=== PATIENT | male | born 1995 | race Caucasian/White ===

== ENCOUNTER 2016-11-22 01:37 | Inpatient (IN) | payer OTHER ==
--- NOTE | ~2016-11-22 | CR72 ---
[facility] A Service of [facility] & [facility] RADIOLOGY TEXT RESULTS PATIENT: ASHLEY REYES LOCATION: [address] : [birth year] UNIT #: [id number] AGE: [address]: Loco Velasco MD SEX: M ORDER DR: [id number] [facility] [address] [facility]. [place], [place] [address] [id number] MR#: [id number] Acc #: [id number] NAME: ASHLEY REYES. : 1995 SEX: M STUDY DATE/TIME: 11/22/2016 2:04 UNIT: CEDOF ROOM: [facility] STUDY DESCRIPTION: CR Chest Single View Portable Attending Physician: Georgia Calle M.D. Ordering Physician: Dm Madden M.D. MEDICAL IMAGING REPORT This report is preliminary unless electronic signature is present EXAM Single view chest INDICATION Respiratory failure. Overdose. FINDINGS Single portable AP view of the chest without comparison. Endotracheal tube is in position approximately 6 cm above the nicolette. There is an enteric tube in the stomach. The lungs are clear. No pneumothorax. IMPRESSION 1. Endotracheal tube 6 cm above the nicolette. 2. Enteric tube is in the stomach. Dictated by... Amarjit Hill M.D. THIS IS AN ELECTRONICALLY VERIFIED REPORT Amarjit Hill M.D. at 11/23/2016 12:48 AM EDEN/kelton TD: 11/22/2016 03:32 JOB #: [id number] MEDICAL IMAGING REPORT Page 1 of 1 COPY
--- NOTE | ~2016-11-22 | EKG ---
PATIENT: ASHLEY REYES UNIT #: [id number] Ventricular Rate: 140 BPM Atrial Rate: 140 BPM P-R Interval: 130 ms QRS Duration: 102 ms Q-T Interval: 304 ms QTC Calculation(Bezet): 464 ms P Majestic: 45 degrees Calculated R Majestic: 67 degrees Calculated T Majestic: 11 degrees Diagnosis Line: Sinus tachycardia Diagnosis Line: Marked ST abnormality, possible inferior Diagnosis Line: subendocardial injury Diagnosis Line: Abnormal ECG Diagnosis Line: No previous ECGs available Diagnosis Line: Confirmed by MARCO LOPEZ MD ([id number]) on Diagnosis Line: 11/23/2016 7:58:14 AM INTERPRETING MD: JOHN PAIGE
--- NOTE | ~2016-11-22 | DS ---
Unit #: [id number] #: [id number] Patient: ASHLEY REYES [id number] [address] [place], [place] [address] [id number] I MR#: [id number] NAME: ASHLEY REYES. ROOM: 242 Age: 21 Sex: M Admission Date: 11/22/2016 : 1995 Discharge Date: Attending Physician: Loco Velasco M.D. Primary Care Physician: Primary Care Physician No DISCHARGE SUMMARY PRIMARY CARE PHYSICIAN None PRINCIPAL DIAGNOSES 1. Intentional polysubstance overdose including Flexeril, Tylenol and ibuprofen. 2. Suicide attempt. 3. Acute hypoxic respiratory failure, now resolved. 4. Hypokalemia. 5. Tobaccoism. 6. History of depression. 7. History of migraine headaches. CONSULTANTS Dr. Davy Agudelo M.D. - Pulmonology PROCEDURES 1. Chest x-ray on November 22, 2016, with no acute findings. 2. CT of the head without contrast on November 22, 2016, which was normal. CLINICAL HISTORY/HOSPITAL COURSE Mr. Reyes is a 21-year-old male with a history of depression, who presents to the emergency department after an intentional polypharmacy overdose. This included Flexeril, Tylenol #3 and Motrin. Please refer to H and P for further details. The patient was intubated for airway protection and subsequently admitted to the ICU. Dr. Agudelo was consulted and fortunately after about 24 hours, patient was successfully extubated. He is not having any shortness of breath now, no evidence of hypoxia and is eating well. Upon presentation, the patient was found to have an elevated Tylenol level of 92, but follow up Tylenol levels after treatment with charcoal and IV fluids decreased and there was no need for any further treatment. Therefore, the patient will be evaluated today by [facility] and likely transferred there if deemed appropriate. DISCHARGE CONDITION Stable. DISCHARGE STATUS Discharge to Our . Unit #: [id number] #: [id number] Patient: ASHLEY REYES DISCHARGE MEDICATIONS None. DISCHARGE INSTRUCTIONS Regular diet. Refrain from any further tobacco use. FOLLOWUP Per Our . Dictated by... Bettie Mace M.D. KEH/jyoti TD: 11/24/2016 11:02 JOB #: [id number] DISCHARGE SUMMARY Page 1 of 1 X Bettie Mace MD X DISCHARGE SUMMARY
--- NOTE | ~2016-11-22 | CT71 ---
[facility] A Service [facility] RADIOLOGY TEXT RESULTS PATIENT: ASHLEY REYES LOCATION: [facility] : [birth year] UNIT #: [id number] AGE: [address]: Dm Madden MD SEX: M ORDER DR: [id number] [place] [id number] [facility] [place] [facility]. [place], [place] [address] [id number] MR#: [id number] Acc #: [id number] NAME: ASHLEY REYES. : 1995 SEX: M STUDY DATE/TIME: 11/22/2016 4:01 UNIT: [facility] ROOM: STUDY DESCRIPTION: CT Head Wo Contrast Attending Physician: Dm Madden M.D. Ordering Physician: Dm Madden M.D. Primary Care Physician: Primary Care Physician No MEDICAL IMAGING REPORT This report is preliminary unless electronic signature is present EXAM CT head INDICATION Overdose. Unresponsive. Altered mental status. TECHNIQUE CT head without contrast. This CT exam was performed with one or more of the following radiation dose reduction techniques: automatic exposure control, adjustment of mA and/or kV according to patient size, and iterative reconstruction. COMPARISON None available. FINDINGS Axial noncontrast images were obtained from the skull base to the vertex. Ventricular size and configuration are normal. There is no evidence of acute infarct or hemorrhage. There are no extra-axial fluid collections. No mass lesion or mass effect is seen. There are no skull fractures. IMPRESSION Normal noncontrast head CT. Dictated by... Amarjit Hill M.D. THIS IS AN ELECTRONICALLY VERIFIED REPORT Aamrjit Hill M.D. at 11/22/2016 5:17 AM RPC/erikad [facility] A Service [facility] RADIOLOGY TEXT RESULTS PATIENT: ASHLEY REYES LOCATION: [facility] : [birth year] UNIT #: [id number] AGE: [address]: Dm Madden MD SEX: M ORDER DR: TD: 11/22/2016 04:50 JOB #: [id number] MEDICAL IMAGING REPORT Page 1 of 1 COPY
--- NOTE | ~2016-11-22 | EKG ---
PATIENT: ASHLEY REYES UNIT #: [id number] Ventricular Rate: 104 BPM Atrial Rate: 104 BPM P-R Interval: 176 ms QRS Duration: 100 ms Q-T Interval: 364 ms QTC Calculation(Bezet): 478 ms P Round Top: 83 degrees Calculated R Round Top: 79 degrees Calculated T Round Top: 2 degrees Diagnosis Line: Sinus tachycardia Diagnosis Line: Nonspecific ST and T wave abnormality Diagnosis Line: Abnormal ECG Diagnosis Line: When compared with ECG of 22-NOV-2016 01:48, Diagnosis Line: (unconfirmed) Diagnosis Line: T wave inversion no longer evident in Inferior Diagnosis Line: leads Diagnosis Line: Confirmed by MARCO LOPEZ MD ([id number]) on Diagnosis Line: 11/23/2016 7:59:42 AM INTERPRETING MD: JOHN PAIGE
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
[~2016-11-22 01:37] MED LIST: AMOXIL500 M1 PO; IBUPROFEN800 MG PO; KEFLEX PO; MULTIVITAMIN W-1 TAB PO; POLYSACC IRON150 MG PO; PROTEIN SUPPLEMENT; VICODIN 5/1 TAB 5/50 PO; WALGREEN'S PHARMACY
[2016-11-22 02:41] LABS: ARTERIAL BLD GAS O2 SATURATION 97.2 % (90.0-100.0); ARTERIAL BLOOD GAS CARBOXY HB 1.7 %sat (0.0-9.0); ARTERIAL BLOOD GAS HCO3 26.6 mmol/L; ARTERIAL BLOOD GAS MET HB 1.2 %sat (0.0-2.0); ARTERIAL BLOOD GAS PCO2 39.1 mmHg (35.0-45.0); ARTERIAL BLOOD GAS pH 7.441 (7.350-7.450)
[2016-11-22 02:42] LABS: ARTERIAL BLOOD GAS ART SITE LEFT BRACHIAL; ARTERIAL BLOOD GAS DELIVERY VENT; ARTERIAL BLOOD GAS VENT MODE AC; ARTERIAL DRAW? YES
[2016-11-22 03:01] LABS: BASOPHIL% 0.5 % (0-2.5); EOSINOPHIL# 0.1 X10e3 (0-0.7); EOSINOPHIL% 1.1 % (0.0-7.0); HEMATOCRIT 42.6 % (38.0-50.0); HEMOGLOBIN 14.5 gm/dL (13.0-16.0); LYMPHOCYTE# 1.5 X10e3 (1.0-3.5); LYMPHOCYTE% 31.2 % (17.0-45.0); MEAN CELL VOLUME 96.4 FL (83-96); MEAN CORPUSCULAR HEMOGLOBIN 32.9 PG (28-34); MEAN CORPUSCULAR HGB CONC 34.1 g/dL (30-36); MEAN PLATELET VOLUME 9.4 FL (6.5-11.5); MONOCYTE# 0.4 X10e3 (0-1.0); MONOCYTE% 7.8 % (3.0-12.0); NEUTROPHIL# 2.8 X10e3 (1.5-7.1); NEUTROPHIL% 59.4 % (40-75); PLATELET COUNT 127 X10e3 (140-420); RED BLOOD COUNT 4.42 X10e (3.90-5.60); RED CELL DISTRIBUTION WIDTH 11.7 % (11.0-15.5); WHITE BLOOD COUNT 4.8 X10e3 (4.0-10.5)
[2016-11-22 03:01] LABS: POC - CKMB <1.0 ng/mL (0.0-7.9); POC - TROPONIN <0.05 ng/mL (<=0.05)
[2016-11-22 03:02] LABS: DIFF IND NO
[2016-11-22 03:08] LABS: URINE APPEARANCE CLEAR; URINE BILIRUBIN NEG (NEG); URINE BLOOD 1+ (NEG); URINE COLOR YELLOW; URINE GLUCOSE NEG (NEG); URINE KETONE NEG (NEG); URINE LEUKOCYTE ESTERASE TRACE (NEG); URINE NITRATE NEG (NEG); URINE PH 6.5 (5-8); URINE PROTEIN NEG (NEG); URINE SPECIFIC GRAVITY 1.009 (1.003-1.035); URINE UROBILINOGEN 0.2 MG/DL (NEG)
[2016-11-22 03:11] LABS: URINE BACTERIA AUWI NEG (NEGATIVE); URINE SQUAMOUS EPITHELIAL CELL OCC /[HPF]
[2016-11-22 03:13] LABS: CULTURE INDICATED? NO
[2016-11-22 03:14] LABS: URINE SOURCE CLEAN CATCH
[2016-11-22 03:15] LABS: ACETAMINOPHEN 92 ug/mL; ALBUMIN SERUM 4.4 g/dL (3.5-5.0); ALKALINE PHOSPHATASE 56 U/L (32-92); ALT (SGPT) 15 U/L (10-40); AMYLASE 14 U/L (0-46); AST (SGOT) 18 U/L (10-42); BILIRUBIN,TOTAL 1.3 mg/dL (0.2-2.0); BLOOD UREA NITROGEN 9 mg/dL (9-23); CALCIUM SERUM 8.6 mg/dL (8.4-10.2); CARBON DIOXIDE 24 mmol/L (22-31); CHLORIDE 106 mmol/L (100-111); CK TOTAL 40 IU/L (36-174); CREATININE SERUM 0.9 mg/dL (0.6-1.4); GLOM FILT RATE Estimated 120.8 mL/min (>60); GLUCOSE FASTING 169 mg/dL (70-110); LIPASE 16 U/L (22-51); PROTEIN TOTAL SERUM 6.9 g/dL (6.0-8.3); SALICYLATE <4.0 mg/dL; SODIUM 137 mmol/L (135-145)
[2016-11-22 03:16] LABS: ALCOHOL BLOOD <5 mg/dL (0); POTASSIUM 2.6 mmol/L (3.5-5.1)
[2016-11-22 03:16] LABS: AMPHETAMINE NEG (NEG); BARBITURATES NEG (NEG); BENZODIAZEPINES NEG (NEG); COCAINE NEG (NEG); MARIJUANA NEG (NEG); OPIATES POS (NEG); TRICYCLIC ANTIDEPRESSANTS POS (NEG); U METHADONE NEG (NEG)
[2016-11-22 03:19] LABS: INR 1.2; PARTIAL THROMBOPLASTIN TIME 27.8 SECONDS (23.5-31.3); PROTHROMBIN TIME (PATIENT) 12.8 SECONDS (10.0-11.7)
[2016-11-22 04:47] LABS: ARTERIAL BLD GAS O2 SATURATION 97.4 % (90.0-100.0); ARTERIAL BLOOD GAS CARBOXY HB 1.2 %sat (0.0-9.0); ARTERIAL BLOOD GAS MET HB 1.4 %sat (0.0-2.0); ARTERIAL BLOOD GAS PCO2 36.7 mmHg (35.0-45.0); ARTERIAL BLOOD GAS pH 7.442 (7.350-7.450)
[2016-11-22 04:48] LABS: ARTERIAL BLOOD GAS ART SITE LEFT BRACHIAL; ARTERIAL BLOOD GAS DELIVERY VENT; ARTERIAL BLOOD GAS VENT MODE AC; ARTERIAL DRAW? YES
[2016-11-22 08:33] LABS: ARTERIAL BLD GAS O2 SATURATION 99.1 % (90.0-100.0); ARTERIAL BLOOD GAS ALLEN TEST NORMAL; ARTERIAL BLOOD GAS CARBOXY HB 0.6 %sat (0.0-9.0); ARTERIAL BLOOD GAS HCO3 29.9 mmol/L; ARTERIAL BLOOD GAS MET HB 0.6 %sat (0.0-2.0); ARTERIAL BLOOD GAS PCO2 40.7 mmHg (35.0-45.0); ARTERIAL BLOOD GAS pH 7.475 (7.350-7.450); ARTERIAL DRAW? YES
[2016-11-22 08:34] LABS: ARTERIAL BLOOD GAS ART SITE RIGHT RADIAL; ARTERIAL BLOOD GAS DELIVERY VENT; ARTERIAL BLOOD GAS VENT MODE AC
[2016-11-22] MEDS ORDERED: FLEXERIL10 MG PO (08:34)
[2016-11-22] MEDS ORDERED: TYLENOL WITH C1 EACH PO (08:38)
[2016-11-22 10:55] LABS: CALCIUM SERUM 8.1 mg/dL (8.4-10.2); CREATININE SERUM 0.7 mg/dL (0.6-1.4); MAGNESIUM 1.6 mg/dL (1.6-3.0)
[2016-11-22 10:57] LABS: POTASSIUM 2.5 mmol/L (3.5-5.1)
[2016-11-22 11:28] LABS: BASOPHIL% 0.5 % (0-2.5); EOSINOPHIL# 0.1 X10e3 (0-0.7); EOSINOPHIL% 1.7 % (0.0-7.0); HEMATOCRIT 39.2 % (38.0-50.0); HEMOGLOBIN 13.5 gm/dL (13.0-16.0); LYMPHOCYTE# 2.1 X10e3 (1.0-3.5); LYMPHOCYTE% 34.2 % (17.0-45.0); MEAN CELL VOLUME 95.7 FL (83-96); MEAN CORPUSCULAR HGB CONC 34.5 g/dL (30-36); MEAN PLATELET VOLUME 9.1 FL (6.5-11.5); MONOCYTE# 0.6 X10e3 (0-1.0); MONOCYTE% 9.3 % (3.0-12.0); NEUTROPHIL# 3.3 X10e3 (1.5-7.1); NEUTROPHIL% 54.3 % (40-75); PLATELET COUNT 123 X10e3 (140-420); RED CELL DISTRIBUTION WIDTH 11.8 % (11.0-15.5)
[2016-11-22 11:30] LABS: DIFF IND NO
[2016-11-22 16:34] LABS: MAGNESIUM 2.1 mg/dL (1.6-3.0); POTASSIUM 3.6 mmol/L (3.5-5.1)
[2016-11-22 16:56] LABS: BILIRUBIN, DIRECT 0.2 mg/dL (0.0-0.2); BILIRUBIN,INDIRECT 0.8 mg/dL (0.0-0.9); PROTEIN TOTAL SERUM 6.2 g/dL (6.0-8.3)
[2016-11-22 21:37] LABS: CALCIUM SERUM 8.5 mg/dL (8.4-10.2); CARBON DIOXIDE 29 mmol/L (22-31); CHLORIDE 111 mmol/L (100-111); CREATININE SERUM 0.7 mg/dL (0.6-1.4); GLUCOSE FASTING 98 mg/dL (70-110); POTASSIUM 4.1 mmol/L (3.5-5.1); SODIUM 143 mmol/L (135-145)
[2016-11-22 21:38] LABS: BLOOD UREA NITROGEN <5 mg/dL (9-23); BUN/CREATININE RATIO 7.14
[2016-11-23 06:07] LABS: ALBUMIN SERUM 3.5 g/dL (3.5-5.0); ALKALINE PHOSPHATASE 50 U/L (32-92); ALT (SGPT) 13 U/L (10-40); AST (SGOT) 13 U/L (10-42); CALCIUM SERUM 8.5 mg/dL (8.4-10.2); CARBON DIOXIDE 29 mmol/L (22-31); CHLORIDE 108 mmol/L (100-111); CREATININE SERUM 0.7 mg/dL (0.6-1.4); GLUCOSE FASTING 93 mg/dL (70-110); MAGNESIUM 1.6 mg/dL (1.6-3.0); POTASSIUM 3.8 mmol/L (3.5-5.1); PROTEIN TOTAL SERUM 5.5 g/dL (6.0-8.3); SODIUM 140 mmol/L (135-145)
[2016-11-23 06:08] LABS: BLOOD UREA NITROGEN <5 mg/dL (9-23); BUN/CREATININE RATIO 7.14
[2016-11-23 09:42] LABS: ARTERIAL BLOOD GAS CARBOXY HB 0.4 %sat (0.0-9.0); ARTERIAL BLOOD GAS HCO3 28.6 mmol/L; ARTERIAL BLOOD GAS MET HB 0.6 %sat (0.0-2.0); ARTERIAL BLOOD GAS PCO2 36.6 mmHg (35.0-45.0); ARTERIAL BLOOD GAS pH 7.502 (7.350-7.450)
[2016-11-23 09:44] LABS: ARTERIAL BLD GAS O2 SATURATION >99.1 % (90.0-100.0); ARTERIAL BLOOD GAS ALLEN TEST NORMAL; ARTERIAL BLOOD GAS ART SITE RIGHT RADIAL; ARTERIAL BLOOD GAS DELIVERY VENT; ARTERIAL BLOOD GAS VENT MODE SIMV; ARTERIAL DRAW? YES
[2016-11-23 14:32] LABS: BLOOD UREA NITROGEN <5 mg/dL (9-23); BUN/CREATININE RATIO 6.25; CALCIUM SERUM 8.7 mg/dL (8.4-10.2); CARBON DIOXIDE 28 mmol/L (22-31); CHLORIDE 105 mmol/L (100-111); CREATININE SERUM 0.8 mg/dL (0.6-1.4); GLOM FILT RATE Estimated 126.9 mL/min (>60); GLUCOSE FASTING 100 mg/dL (70-110); POTASSIUM 3.5 mmol/L (3.5-5.1); SODIUM 138 mmol/L (135-145)
[2016-11-23 22:08] LABS: BUN/CREATININE RATIO 5.55; CALCIUM SERUM 9.1 mg/dL (8.4-10.2); CREATININE SERUM 0.9 mg/dL (0.6-1.4); GLOM FILT RATE Estimated 120.8 mL/min (>60); POTASSIUM 3.5 mmol/L (3.5-5.1)
[2016-11-24 05:53] LABS: BASOPHIL% 0.2 % (0-2.5); EOSINOPHIL# 0.2 X10e3 (0-0.7); EOSINOPHIL% 2.6 % (0.0-7.0); HEMATOCRIT 40.6 % (38.0-50.0); HEMOGLOBIN 13.8 gm/dL (13.0-16.0); LYMPHOCYTE# 1.5 X10e3 (1.0-3.5); MEAN CELL VOLUME 96.6 FL (83-96); MEAN CORPUSCULAR HEMOGLOBIN 32.8 PG (28-34); MEAN PLATELET VOLUME 8.9 FL (6.5-11.5); MONOCYTE# 0.6 X10e3 (0-1.0); MONOCYTE% 7.7 % (3.0-12.0); NEUTROPHIL# 4.9 X10e3 (1.5-7.1); NEUTROPHIL% 68.5 % (40-75); PLATELET COUNT 127 X10e3 (140-420); RED CELL DISTRIBUTION WIDTH 11.7 % (11.0-15.5); WHITE BLOOD COUNT 7.2 X10e3 (4.0-10.5)
[2016-11-24 06:03] LABS: DIFF IND NO
[2016-11-24 06:30] LABS: CALCIUM SERUM 8.9 mg/dL (8.4-10.2); CREATININE SERUM 0.6 mg/dL (0.6-1.4); GLOM FILT RATE Estimated 142.8 mL/min (>60); POTASSIUM 4.1 mmol/L (3.5-5.1)
== END 2016-11-25 00:54 | DRG 917 ==
LOC: CED 01:37 → CEDOF 05:30 → CED 05:32 → CEDOF 05:32 → CICCU3 05:32 → CEDOF 07:36 → CICCU3 07:36 → C2A 11-23 18:05
PROVIDERS: Emergency Medicine; Internal Medicine; Internal Medicine Pulmonary Disease
PROC: 5A1945Z Respiratory Ventilation, 24-96 Consecutive Hours (ICD-10-PCS; principal; 2016-11-22)
PROC: 0BH17EZ Insertion of Endotracheal Airway into Trachea, Via Natural or Artificial Opening (ICD-10-PCS; 2016-11-22)
DX: T39.1X2A Poisoning by 4-Aminophenol derivatives, intentional self-harm, initial encounter (principal); J96.01 Acute respiratory failure with hypoxia; T48.1X2A Poisoning by skeletal muscle relaxants [neuromuscular blocking agents], intentional self-harm, initial encounter; T39.312A Poisoning by propionic acid derivatives, intentional self-harm, initial encounter; Y92.009 Unspecified place in unspecified non-institutional (private) residence as the place of occurrence of the external cause; E87.6 Hypokalemia; F32.9 Major depressive disorder, single episode, unspecified; R00.0 Tachycardia, unspecified; F17.200 Nicotine dependence, unspecified, uncomplicated; Z91.5 Personal history of self-harm
CPT/HCPCS: 31500; 36600; 51702; 70450; 71010; 80048; 80053; 80076; 80307; 81003; 82150; 82550; 82553; 82803; 82947; 83690; 83735; 84132; 84484; 85025; 85610; 85730; 93005; 94002; 94760; 94761; 96361; 96374; 99291; G0480; J0330; J3475; J3480; J7060

== ENCOUNTER 2016-11-24 10:00 | Inpatient (IN) | payer OTHER ==
--- NOTE | ~2016-11-24 | PA ---
Unit #: [id number] #: [id number] Patient: ASHLEY REYES [id number] [facility] [address] [place] [address] [id number] MR#: [id number] NAME: ASHLEY REYES. ROOM: P173 Age: 21 Sex: M Admission Date: 11/25/2016 : 1995 Date of Assessment: 11/25/2016 Attending Physician: Nicole Wilkerson M.D. Admitting Physician: Nicole Wilkerson M.D. Primary Care Physician: Generic Doctor Not In System PSYCHIATRIC ASSESSMENT DATE OF SERVICE 11/25/2016. IDENTIFYING DATA Mr. Reyes is a 21-year-old single white male, who is a resident of [place], [place], and was transferred to from [facility] Emergency Room. CHIEF COMPLAINT "I was upset and I got sad and I overdosed." HISTORY OF PRESENT ILLNESS Mr. Reyes is a 21-year-old white male with history of mood disorder, who was taken to the emergency room after he overdosed in a suicide attempt and reports that he took Flexeril and Tylenol No.3 and that he was arguing with his girlfriend and was not talking to any of his friends and reports that he has attempted in the past by overdosing 3 years ago and does report increasing depression, anxiety, irritability, feelings of hopelessness and helplessness, and suicidal ideation, but then later denied having any suicidal ideation. However, recommendation for inpatient level of care was made and the patient was transferred to us. SUBSTANCE ABUSE HISTORY The patient reports history of alcohol and cannabis abuse, and reports that he has been smoking 2 joints a day everyday. PAST PSYCHIATRIC HISTORY The patient has had a history of inpatient psychiatric treatment at [facility] in the past. Review of the medical records indicate that currently he is not active in any treatment program, is not seeing a psychiatrist, and is not taking any psychotropic medications. PAST MEDICAL HISTORY No acute or chronic medical illnesses. ALLERGIES No known medication allergies. CURRENT MEDICATIONS None. PERSONAL AND SOCIAL HISTORY A 21-year-old white male, who reports that he is single and unemployed and Unit #: [id number] #: [id number] Patient: ASHLEY REYES lives at home with his mother and has fairly decent social support system. MENTAL STATUS EXAMINATION Young white male, who was casually dressed with a fair personal hygiene, appears to be in no acute distress or discomfort. He was awake and alert on interaction with intact orientation to time, place, and person. His mood was anxious and depressed with a congruent affect. His speech was slow and restricted in content. His thought processes were disorganized with some looseness of associations and flight of ideas. His insight and judgment remain significantly impaired. DIAGNOSTIC IMPRESSION Psychiatric: Major depressive disorder, recurrent, moderate, without psychotic features and cannabis dependence, moderate. Medical: None. Stressors: Moderate psychosocial stressors. TREATMENT PLAN 1. The patient has presented with a history of mood disorder and substance abuse and has been decompensating and will need inpatient hospitalization for safety and stabilization. We will start him back on his home medications. We will adjust the medications and monitor response. 2. Supportive therapy was provided to the patient. 3. Safe, structured, and nourishing environment will be provided. ESTIMATED LENGTH OF STAY 5 to 7 days. ABILITY TO HELP SELF Limited. WILLINGNESS TO HELP SELF The patient appears to be willing to help self. STRENGTHS 1. Communicative. 2. Cooperative. PROBLEMS 1. Chronic dysphoric symptoms. 2. Poor social support system. DISCHARGE CRITERIA This will be contingent upon the patient's ability to show resolution of his depression and anxiety and his ability to stay safe to himself, particularly after discharge from the hospital. Dictated by... Nicole Wilkerson M.D. KEMAR/rush TD: 11/25/2016 13:01 JOB #: [id number] Unit #: [id number] #: [id number] Patient: ASHLEY REYES PSYCHIATRIC ASSESSMENT Page 1 of 1 X Nicole Wilkerson MD PSYCHIATRIC ASSESSMENT
--- NOTE | ~2016-11-24 | PN ---
Unit #: [id number] #: [id number] Patient: ASHLEY REYES [id number] [facility] [address] [place] [address] [id number] I MR#: [id number] NAME: ASHLEY REYES. ROOM: P173 Age: 21 Sex: M Admission Date: 11/25/2016 : 1995 Attending Physician: Nicole Wilkerson M.D. Admitting Physician: Nicole Wilkerson M.D. Primary Care Physician: Generic Doctor Not In System [facility] PROGRESS NOTES DATE 11/26/2016 DISCUSSION Mr. Reyes is a 21-year-old, white male who was seen today and chart was reviewed and case was discussed with the staff. He has been anxious, withdrawn and rather seclusive to himself. Meanwhile, he has been cooperative with the treatment recommendations. He reports feeling somewhat better than yesterday. MENTAL STATUS EXAM Young white male who was casually dressed with marginal personal hygiene, appears to be in no acute distress or discomfort. He was awake and alert with impaired attention and concentration. His mood was anxious with congruent affect. His speech was slow and restricted in content. His thought process was disorganized with some looseness of associations. He denies any suicidal or homicidal ideation. his insight and judgement remains significantly impaired. TREATMENT PLAN 1. We will continue him on his current medications and treatment protocol. We will monitor his response to the medications and make further adjustments as needed. 2. We will continue to follow up. Dictated by... Catherine Lewis/callum TD: 11/27/2016 03:42 JOB #: [id number] Unit #: [id number] #: [id number] Patient: ASHLEY REYES [facility] PROGRESS NOTES Page 1 of 1 X Nicole Wilkerson MD PROGRESS NOTE
--- NOTE | ~2016-11-24 | DS ---
Unit #: [id number] #: [id number] Patient: [facility] [id number] [facility] [address] [place] [address] [id number] MR#: [id number] NAME: ASHLEY REYES. ROOM: P173 Age: 21 Sex: M Admission Date: 11/25/2016 : 1995 Discharge Date: 11/28/2016 Attending Physician: Nicole Wilkerson M.D. Primary Care Physician: Generic Doctor Not In System DISCHARGE SUMMARY IDENTIFYING DATA Mr. Reyes is a 21-year-old single white male who is a resident of [place], [place] and was transferred to us from [facility]. DISCHARGE DIAGNOSES Psychiatric: Major depressive disorder, recurrent, moderate, without psychotic features; cannabis abuse, moderate. Medical: None. Stressors: Mild psychosocial stressors. HISTORY OF PRESENT ILLNESS Please see initial psychiatric evaluation for details. PAST PSYCHIATRIC HISTORY Please see initial psychiatric evaluation for details. PAST MEDICAL HISTORY Please see initial psychiatric evaluation for details. HOSPITAL COURSE The patient was [facility] and was oriented to the hospital environment. Routine p.r.n. medications were initiated, and he was started back on his home medications and Celexa was initiated as an antidepressant and he was closely monitored. He was taking the medications regularly and was tolerating them fairly well and was able to show a decent and therapeutic response with improvement in depression and anxiety and was denying any suicidal ideations, intent, or plan and was not seen to be a danger to self or anyone else, and as such, it was decided that he will be discharged home and will continue treatment on an outpatient basis. DISCHARGE MEDICATIONS Celexa 20 mg a day for depression. DISCHARGE CONDITION Stable. PROGNOSIS Fair. Dictated by... Nicole Wilkerson M.D. Unit #: [id number] #: [id number] Patient: ASHLEY REYES IAA/modl TD: 11/29/2016 00:48 JOB #: [id number] DISCHARGE SUMMARY Page 1 of 1 X Nicole Wilkerson MD X DISCHARGE SUMMARY
--- NOTE | ~2016-11-24 | PN ---
Unit #: [id number] #: [id number] Patient: ASHLEY REYES [id number] [facility] [address] [place] [address] [id number] I MR#: [id number] NAME: ASHLEY REYES. ROOM: P173 Age: 21 Sex: M Admission Date: 11/25/2016 : 1995 Attending Physician: Nicole Wilkerson M.D. Admitting Physician: Nicole Wilkerson M.D. Primary Care Physician: Hemant Doctor Not In System [facility] PROGRESS NOTES DATE November 25, 2016 DISCUSSION Mr. Reyes is a 21-year-old white male, with substance abuse and mood disorder, who was seen today and chart was reviewed and the case was discussed with the staff. He has been anxious, withdrawn, depressed, and seclusive to himself. Meanwhile, he has been cooperative with the treatment recommendations and he has been taking the medications and tolerating them fairly well with no reported side effects. MENTAL STATUS EXAMINATION Young white male, who was casually dressed with fair personal hygiene and appears to be in no acute distress or discomfort. He was awake and alert on interaction with intact orientation. His mood is anxious with a congruent affect. The patient denies any suicidal or homicidal ideations. His insight and judgment remain slightly impaired. TREATMENT PLAN 1. We will continue him on his current medications and treatment protocol, and will monitor his response to the medications, and make further adjustments as needed. 2. We will continue to followup. Dictated by... Catherine Lewis/shaniqua TD: 11/26/2016 08:32 JOB #: [id number] Unit #: [id number] #: [id number] Patient: ASHLEY REYES [facility] PROGRESS NOTES Page 1 of 1 X Nicole Wilkerson MD PROGRESS NOTE
--- NOTE | ~2016-11-24 | HP ---
Unit #: [id number] #: [id number] Patient: ASHLEY REYES [id number] [place] [address] [id number] MR#: [id number] NAME: ASHLEY REYES. ROOM: [facility] Age: 21 Sex: M Admission Date: 11/25/2016 : 1995 Attending Physician: Nicole Wilkerson M.D. Admitting Physician: Nicole Wilkerson M.D. Primary Care Physician: Generic Doctor Not In System HISTORY AND PHYSICAL HISTORY OF PRESENT ILLNESS The patient is a 21-year-old male, admitted to [facility] on 11/25/2016 for suicidal ideations with an attempt to overdose. PAST MEDICAL HISTORY The patient denies. PAST SURGICAL HISTORY The patient denies. SOCIAL HISTORY He is unemployed. He lives with his mom. He smokes four cigarettes daily, drinks alcohol two times per week, and smokes marijuana two joints per day. FAMILY MEDICAL HISTORY Noncontributory. ALLERGIES No known drug allergies. CURRENT MEDICATIONS The patient is not on any home medications. REVIEW OF SYSTEMS CONSTITUTIONAL: No fever or chills. HEENT: Denies any sore throat, ear pain or runny nose. CARDIOVASCULAR: Denies chest pain, irregular heart rhythm or palpitations. CHEST: Denies shortness of breath or cough. No hemoptysis. GASTROINTESTINAL: Denies nausea, vomiting, diarrhea or chronic constipation. ENDOCRINE: Denies history of increased thirst or urination. No recent significant weight loss or gain. GENITOURINARY: Denies dysuria, frequency, or hematuria. SKIN: Denies any rashes. HEMATOLOGIC: Denies history of increased bleeding or bruising. MUSCULOSKELETAL: Denies any hot, swollen joints. No generalized muscle pain. NEUROLOGIC: Denies problems with vision or speech. No frequent, severe headaches. No numbness, tingling or weakness in any extremities. Denies loss of bladder or bowel control. PHYSICAL EXAMINATION Unit #: [id number] #: [id number] Patient: ASHLEY REYES GENERAL: He is awake, alert, oriented, and in no acute distress. VITAL SIGNS: Temperature 98.4, heart rate 107, respirations 18, and blood pressure 135/89. HEIGHT: 6 feet 3 inches. WEIGHT: 145 pounds. SKIN: Warm and dry without rash or lesion. HEENT: Normocephalic. TMs not viewed. Oral and nasal passages clear. Conjunctivae clear. PERRLA. EOMs intact. NECK: Supple without lymphadenopathy or thyromegaly. HEART: Regular rate and rhythm without murmur. LUNGS: Clear. ABDOMEN: Soft, nontender. : Not done. EXTREMITIES: No evidence of cyanosis, clubbing or edema. Moves all without focal deficit. NEUROLOGICAL: Grossly within normal limits. Cranial Nerves: II: Visual tao are intact. III, IV AND : Extraocular movements are intact. Pupils are equal, round and reactive to light. V: Facial sensation is grossly normal. VII: Facial movements and expression are normal. VIII: Auditory acuity grossly intact. IX, X: Uvula is midline. Phonation is normal. XI: Patient shrugs shoulders and turns head normally. XII: Tongue protrudes in the midline. Sensory and Motor Function: Sensory and motor sensation is grossly normal. Motor: moves all extremities well. Coordination: Gait is normal. Deep Tendon Reflexes: Intact. IMPRESSION Psychiatric admission. RECOMMENDATIONS Psychiatric, per psychiatrist. MEDICAL No contraindications to participating in facility's activities. MEDICAL PROGNOSIS Good. MEDICAL CONDITION Stable. Dictated by... Jose Enrique Valenzuela TD: 11/26/2016 05:41 JOB #: [id number] Unit #: [id number] #: [id number] Patient: ASHLEY REYES HISTORY AND PHYSICAL Page 1 of 1 X MICHAEL GARCIA APRN HISTORY AND PHYSICAL
--- NOTE | ~2016-11-24 | PN ---
Unit #: [id number] #: [id number] Patient: ASHLEY REYES [id number] [facility] [address] [place] [address] [id number] I MR#: [id number] NAME: ASHLEY REYES. ROOM: P173 Age: 21 Sex: M Admission Date: 11/25/2016 : 1995 Attending Physician: Nicole Wilkerson M.D. Admitting Physician: Nicole Wilkerson M.D. Primary Care Physician: Hemant Doctor Not In System [facility] PROGRESS NOTES DATE 11/27/2016 DISCUSSION Mr. Reyes is a 21-year-old, white male who was seen today and chart was reviewed and case was discussed with the staff. He has been anxious, withdrawn and rather seclusive to himself. Meanwhile, he has been cooperative with treatment recommendations. He has been taking the medication and tolerating them fairly well with no reported side effects. MENTAL STATUS EXAM Young white male who was casually dressed with fair personal hygiene, appears to be in no acute distress or discomfort. He was awake and alert on interaction with intact orientation. His mood was anxious with congruent affect. He denies any suicidal or homicidal ideation. Also, denies any auditory or visual hallucinations. His insight and judgement remains slightly impaired. TREATMENT PLAN 1. We will continue him on his current medications and treatment protocol. We will monitor his response to the medication and make further adjustments as needed. 2. We will continue to follow up. Dictated by... Catherine Lewis/callum TD: 11/28/2016 02:09 JOB #: [id number] Unit #: [id number] #: [id number] Patient: ASHLEY REYES [facility] PROGRESS NOTES Page 1 of 1 X Nicole Wilkerson MD PROGRESS NOTE
[~2016-11-24 10:00] MED LIST changes: +FLEXERIL10 MG PO; +TYLENOL WITH C1 EACH PO
== END 2016-11-28 10:17 | DRG 885 ==
LOC: P1E 11-25 01:18
DX: F33.1 Major depressive disorder, recurrent, moderate (principal); R45.851 Suicidal ideations; F17.210 Nicotine dependence, cigarettes, uncomplicated; F12.20 Cannabis dependence, uncomplicated